=== PATIENT | female | born 1965 | race Caucasian/White ===

== ENCOUNTER 2017-05-27 10:24 | Day surgery (SDC) | payer OTHER ==
[2017-05-25 13:34] VITALS: BMI 27.3
[2017-05-27 15:11] VITALS: TEMP 97.7
[2017-05-27 17:02] VITALS: BP 140/77; PULSE 85
== END 2017-05-27 16:50 | disposition home or self-care (01) ==
LOC: JASU-SURG 10:24
PROVIDERS: ATTEND Orthopaedic Surgery
PROC: 0RBK4ZZ Excision of Left Shoulder Joint, Percutaneous Endoscopic Approach (ICD-10-PCS; principal; 2017-05-27)
DX: M75.42 Impingement syndrome of left shoulder (principal)
CPT/HCPCS: 94760

== ENCOUNTER 2023-12-16 11:29 | Emergency (ER) | payer OTHER ==
[2023-12-16 11:48] VITALS: BP 134/80; PULSE 76; RESP 18; TEMP 98; BMI 29.2
== END 2023-12-16 13:45 | disposition home or self-care (01) ==
LOC: JERFT 11:29
DX: S20.211A Contusion of right front wall of thorax, initial encounter (principal); M25.511 Pain in right shoulder; V49.40XA Driver injured in collision with unspecified motor vehicles in traffic accident, initial encounter; Y92.410 Unspecified street and highway as the place of occurrence of the external cause
CPT/HCPCS: 99282-25

== ENCOUNTER 2024-07-22 09:49 | Inpatient (IN) | payer OTHER ==
[2024-08-04 11:25] VITALS: BMI 31.3
[2024-08-05] MEDS ORDERED: GENTAMICIN SO4 80 MG/2 ML VIAL ONE (07:11)
[2024-08-05] MEDS ORDERED: LIDOCAINE 1%/EPI 1:100000 (20 ML MULTI DOSE VIAL) ONE ×2 (07:11→09:05)
[2024-08-05] MEDS ORDERED: THROMBIN (BOVINE) 20,000 UNIT VIAL TP ONE ×2 (07:12→10:15)
[2024-08-05] MEDS ORDERED: BUPIVACAINE HCL/PF 0.5% (5MG/ML) 10 ML VIAL ONE (07:12)
[2024-08-05] MEDS ORDERED: BUPIVACAINE LIPOSOME/PF (EXPAREL) 266 MG/20 ML VIAL ONE (07:17)
[2024-08-05] MEDS ORDERED: ACETAMINOPHEN INJECTION 100 ML ONE (07:20)
[2024-08-05] MEDS ORDERED: MIDAZOLAM HCL 2 MG/2 ML SINGLE DOSE VIAL ONE ×2 (07:34→12:39)
[2024-08-05] MEDS ORDERED: GLYCOPYRROLATE 0.2 MG/1 ML VIAL ONE (07:35)
[2024-08-05] MEDS ORDERED: VANCOMYCIN 1,000 MG VIAL (RESTRICTED TO ID ONLY) ONE (07:35)
[2024-08-05] MEDS ORDERED: ceFAZolin SODIUM 1 GM VIAL ONE ×2 (07:35→11:14)
[2024-08-05] MEDS ORDERED: DEXAMETHASONE SOD PHOSPHATE 4 MG/1 ML VIAL ONE (07:35)
[2024-08-05] MEDS ORDERED: LIDOCAINE HCL/PF 2% SDV 5ML VIAL ONE ×3 (07:35→11:57)
[2024-08-05] MEDS ORDERED: ONDANSETRON 4 MG/2 ML VIAL ONE (07:35)
[2024-08-05] MEDS ORDERED: SUCCINYLCHOLINE CHLORIDE 200 MG/10 ML SYRINGE ONE (07:36)
[2024-08-05] MEDS ORDERED: PROPOFOL 20 ML ONE ×3 (07:36→13:23)
[2024-08-05] MEDS ORDERED: MAGNESIUM SULF 50% (8.12 MEQ/2 ML-1 GM VIAL) ONE (07:38)
[2024-08-05] MEDS ORDERED: ROCURONIUM BROMIDE 50 MG/5 ML SYRINGE ONE ×3 (07:38→11:53)
[2024-08-05] MEDS ORDERED: KETAMINE HCL 200 MG/20 ML VIAL ONE (08:10)
[2024-08-05] MEDS: ceFAZolin SODIUM 1 GM VIAL IVPB ONE ×2 (08:30→11:30)
[2024-08-05] MEDS ORDERED: HYDROmorphone HCl 2 MG/ML VIAL ONE ×2 (08:31→12:45)
[2024-08-05] MEDS ORDERED: TRANEXAMIC ACID 1000 MG/10 ML VIAL ONE ×2 (08:33→11:14)
[2024-08-05] MEDS: VANCOMYCIN 1,000 MG VIAL (RESTRICTED TO ID ONLY) IVPB ONE (08:35)
[2024-08-05] MEDS ORDERED: PROPOFOL 60 ML ONE (08:38)
[2024-08-05] MEDS ORDERED: BACITRACIN ZINC 15 GM TUBE TOPICAL OINTMENT ONE (08:42)
[2024-08-05] MEDS: LIDOCAINE 1%/EPI 1:100000 (50 ML MULTI DOSE VIAL) INF ONE (08:45)
[2024-08-05] MEDS ORDERED: PROMETHAZINE HCL 25 MG/1 ML VIAL IVPB PRN (08:56)
[2024-08-05] MEDS ORDERED: PHENYLEPHRINE HCL 10 MG/1 ML SINGLE DOSE VIAL ONE (10:09)
[2024-08-05] MEDS ORDERED: ONDANSETRON 4 MG/2 ML VIAL IVPUSH PRN (10:18)
[2024-08-05] MEDS ORDERED: morphine CARPU-JECT 4 MG/1 ML DISP.SYRIN IVPUSH PRN (10:18)
[2024-08-05] MEDS ORDERED: oxyCODONE HCL 5 MG TABLET PO PRN ×2 (10:18)
[2024-08-05] MEDS ORDERED: diphenhydrAMINE HCL 25 MG CAPSULE (FP) PO PRN (10:18)
[2024-08-05] MEDS: THROMBIN (BOVINE) 20,000 UNIT VIAL TP ONE (10:30)
[2024-08-05] MEDS: GENTAMICIN 80MG PREMIX BAG IVPB ONE (11:24)
[2024-08-05] MEDS: HYDROGEN PEROXIDE 473 ML PO ONE (11:24)
[2024-08-05] MEDS: BUPIVACAINE LIPOSOME/PF (EXPAREL) 266 MG/20 ML VIAL NR ONE (11:25)
[2024-08-05] MEDS ORDERED: SUGAMMADEX SODIUM 200 MG/2 ML VIAL ONE (11:53)
[2024-08-05] MEDS: BUPIVACAINE HCL/PF 0.5% (5MG/ML) 10 ML VIAL IJ ONE (11:55)
[2024-08-05] MEDS ORDERED: ALBUTEROL SO4 HFA INHALER IH ONE (12:24)
[2024-08-05] MEDS ORDERED: SODIUM CHLORIDE 0.9% P/F 10 ML VIAL IJ ONE (12:45)
[2024-08-05] MEDS ORDERED: LABETALOL HCL 20 MG/4 ML VIAL ONE (13:29)
[2024-08-05] MEDS ORDERED: SEVOFLURANE 250 ML BTL ONE (13:53)
[2024-08-05] MEDS ORDERED: HYDROmorphone *PCA* 10MG/50ML DISP.SYRIN ONE (14:39)
[2024-08-05] MEDS: HYDROmorphone *PCA* 10MG/50ML DISP.SYRIN PCA SCH (14:48)
[2024-08-05] MEDS: LACTATED RINGERS SOLUTION 1,000 ML/1,000 ML INFUS.BAG IV SCH (16:25)
[2024-08-05] MEDS: DOCUSATE SODIUM 100 MG CAPSULE (FP) PO SCH (17:13)
[2024-08-05 17:23] LABS: ABSOLUTE IMMATURE GRANULOCYTES 0.07 x10^3/uL (0.0-0.031); BASOPHILS # 0.02 x10^3/uL (0.01-0.08); HEMATOCRIT 32.9 % (34.1-44.9); HEMOGLOBIN 10.5 g/dL (11.2-15.7); MCHC 31.9 g/dl (32.2-35.5); MEAN CELL VOLUME 91.1 fl (79.4-94.8); MEAN PLT VOLUME 10.1 fl (9.4-12.3); MONOCYTE # 0.21 x10^3/uL (0.24-0.86); MONOCYTE % 1.6 % (4.7-12.5); PLATELET COUNT 238 x10^3/uL (182-369)
[2024-08-05] MEDS: HEPARIN NA (PORCINE) 5,000 UNITS/ML 1ML VIAL SQ SCH (17:31)
[2024-08-05 17:34] LABS: POTASSIUM 5.1 mmol/L (3.5-5.1)
[2024-08-05] MEDS: ACETAMINOPHEN 325 MG TABLET (FP) PO SCH (17:35)
[2024-08-05 17:36] LABS: ALBUMIN 3.2 g/dl (3.4-5.0); CALCIUM 7.8 mg/dL (8.5-10.1)
[2024-08-05 17:37] LABS: BLOOD UREA NITROGEN 15.2 mg/dL (7-18); MAGNESIUM 1.6 mg/dL (1.8-2.4)
[2024-08-05 17:40] LABS: CREATININE 0.8 mg/dL (0.55-1.3); PHOSPHOROUS 3.7 mg/dL (2.5-4.9)
[2024-08-05 17:41] LABS: BILIRUBIN,TOTAL 0.3 mg/dL (0.2-1); TOT PROT 5.6 g/dl (6.4-8.2)
[2024-08-05] MEDS: INSULIN ASPART SLIDING SCALE (NOVOLOG) 1 VIAL SQ SCH (18:01)
[2024-08-05] MEDS: CEFAZOLIN 1 GM in DEXTROSE 5%-WATER - 50 ML IVPB SCH (18:25)
[2024-08-05] MEDS ORDERED: INSULIN ASPART SLIDING SCALE (NOVOLOG) 1 VIAL SQ ONE (18:30)
[2024-08-05] MEDS ORDERED: INSULIN GLARGINE (LANTUS) 100 UNITS/ML UNITS SQ ONE (18:31)
[2024-08-05] MEDS: ALPRAZolam 0.25 MG TABLET PO SCH (21:48)
[2024-08-05] MEDS: MELATONIN 5 MG TABLETS PO SCH (21:51)
[2024-08-05] MEDS: MULTIVITAMINS (DAILY MVI) TABLET (FP) PO SCH (21:52)
[2024-08-05] MEDS: GABAPENTIN 100 MG CAPSULE PO SCH (21:52)
[2024-08-05] MEDS: FLUoxetine HCL 20 MG CAPSULE PO SCH (21:52)
[2024-08-05] MEDS: LOSARTAN POTASSIUM 50 MG TABLET PO SCH (21:56)
[2024-08-05] MEDS ORDERED: metFORMIN HCL 500 MG TABLET (FP) PO SCH (22:00)
[2024-08-05] MEDS: LACTATED RINGERS SOLUTION 1,000 ML IV SCH (22:46)
[2024-08-06] MEDS ORDERED: CEFAZOLIN 1 GM/D5W 1 GM/50 ML BAG IVPB SCH (02:05)
[2024-08-06] MEDS: CEFAZOLIN 1 GM/D5W 1 GM/50 ML BAG IVPB SCH (02:28)
[2024-08-06] MEDS: FOLIC ACID 1 MG TABLET (FP) PO SCH (09:47)
[2024-08-06] MEDS: FERROUS SO4 325 MG TABLET (FP) PO SCH (09:47)
[2024-08-06 10:11] LABS: HEMATOCRIT 25.8 % (34.1-44.9); HEMOGLOBIN 8.1 g/dL (11.2-15.7); MCHC 31.4 g/dl (32.2-35.5); MEAN CELL VOLUME 92.8 fl (79.4-94.8); MEAN PLT VOLUME 10.4 fl (9.4-12.3); PLATELET COUNT 201 x10^3/uL (182-369); RDW 12.5 % (12.3-16.6)
[2024-08-06 12:20] LABS: POTASSIUM 4.2 mmol/L (3.5-5.1)
[2024-08-06 12:32] LABS: CREATININE 0.6 mg/dL (0.55-1.3)
[2024-08-06] MEDS ORDERED: BENZOCAINE/MENTH/CETYLPYRD CL 1 EACH LOZENGE MM PRN (16:03)
[2024-08-06] MEDS: IBUPROFEN 400 MG TABLET (FP) PO PRN (18:43)
[2024-08-07 08:23] LABS: ABSOLUTE IMMATURE GRANULOCYTES 0.02 x10^3/uL (0.0-0.031); BASOPHILS # 0.03 x10^3/uL (0.01-0.08); EOSINOPHIL % 0.7 % (0.7-5.8); EOSINOPHILS # 0.05 x10^3/uL (0.04-0.36); HEMATOCRIT 23.1 % (34.1-44.9); MCHC 30.3 g/dl (32.2-35.5); MEAN CELL VOLUME 93.9 fl (79.4-94.8); MEAN PLT VOLUME 10.3 fl (9.4-12.3); MONOCYTE # 0.91 x10^3/uL (0.24-0.86); MONOCYTE % 12.6 % (4.7-12.5); PLATELET COUNT 159 x10^3/uL (182-369); RDW 12.3 % (12.3-16.6)
[2024-08-07 08:42] LABS: POTASSIUM 3.8 mmol/L (3.5-5.1)
[2024-08-07 08:50] LABS: ALBUMIN 2.6 g/dl (3.4-5.0); BLOOD UREA NITROGEN 7.3 mg/dL (7-18); CALCIUM 8.2 mg/dL (8.5-10.1); MAGNESIUM 1.9 mg/dL (1.8-2.4)
[2024-08-07 08:53] LABS: CREATININE 0.5 mg/dL (0.55-1.3)
[2024-08-07 08:55] LABS: BILIRUBIN,TOTAL 0.2 mg/dL (0.2-1); TOT PROT 4.6 g/dl (6.4-8.2)
[2024-08-07] MEDS: LACTATED RINGERS SOLUTION 1,000 ML/1,000 ML INFUS.BAG IV SCH (11:18)
[2024-08-07] MEDS ORDERED: INSULIN ASPART SLIDING SCALE (NOVOLOG) 1 VIAL SQ ONE (12:06)
[2024-08-07 13:39] VITALS: RESP 20
[2024-08-07] MEDS: IRON SUCROSE INJECTION 200 MG in SODIUM CHLORIDE 100 ML IVPB ONE (17:51)
[2024-08-08 08:00] LABS: ABSOLUTE IMMATURE GRANULOCYTES 0.05 x10^3/uL (0.0-0.031); BASOPHILS # 0.04 x10^3/uL (0.01-0.08); EOSINOPHIL % 0.7 % (0.7-5.8); EOSINOPHILS # 0.06 x10^3/uL (0.04-0.36); HEMATOCRIT 23.1 % (34.1-44.9); HEMOGLOBIN 7.3 g/dL (11.2-15.7); MCHC 31.6 g/dl (32.2-35.5); MEAN PLT VOLUME 10.2 fl (9.4-12.3); MONOCYTE # 0.89 x10^3/uL (0.24-0.86); MONOCYTE % 10.7 % (4.7-12.5); PLATELET COUNT 169 x10^3/uL (182-369); RDW 12.1 % (12.3-16.6)
[2024-08-08 08:17] LABS: POTASSIUM 3.5 mmol/L (3.5-5.1)
[2024-08-08 08:22] LABS: ALBUMIN 2.7 g/dl (3.4-5.0); BLOOD UREA NITROGEN 4.8 mg/dL (7-18); CALCIUM 8.1 mg/dL (8.5-10.1); MAGNESIUM 1.8 mg/dL (1.8-2.4)
[2024-08-08 08:26] LABS: BILIRUBIN,TOTAL 0.3 mg/dL (0.2-1); CREATININE 0.4 mg/dL (0.55-1.3); TOT PROT 5.2 g/dl (6.4-8.2)
[2024-08-08] MEDS: POTASSIUM CHLORIDE ORAL LIQUID 20 MEQ/15 ML PO ONE (09:30)
[2024-08-08] MEDS: MAGNESIUM 1GM/D5W - 1 GM/100 ML IVPB IVPB ONE (10:35)
[2024-08-08] MEDS ORDERED: oxyCODONE HCL 5 MG TABLET PO PRN (11:18)
[2024-08-08 12:59] VITALS: BP 126/70; PULSE 94
[2024-08-08 13:14] VITALS: TEMP 98.9
[2024-08-08] MEDS: oxyCODONE HCL 5 MG TABLET PO PRN (13:21)
[2024-08-08] MEDS ORDERED: DOCUSATE SODIUM 100 MG CAPSULE (FP) PO SCH (22:00)
== END 2024-08-08 13:54 | disposition home or self-care (01) | DRG 472 ==
LOC: J2C 08-05 06:08 → J8W 08-05 16:59
PROVIDERS: ADMIT Internal Medicine; ATTEND Nurse Practitioner Acute Care
PROC: 01N10ZZ Release Cervical Nerve, Open Approach (ICD-10-PCS; 2024-08-05)
PROC: 4A1004G Monitoring of Central Nervous Electrical Activity, Intraoperative, Open Approach (ICD-10-PCS; 2024-08-05)
PROC: 0RG20A0 Fusion of 2 or more Cervical Vertebral Joints with Interbody Fusion Device, Anterior Approach, Anterior Column, Open Approach (ICD-10-PCS; principal; 2024-08-05 08:00)
PROC: 0PB30ZZ Excision of Cervical Vertebra, Open Approach (ICD-10-PCS; 2024-08-05 08:00)
DX: M47.12 Other spondylosis with myelopathy, cervical region (principal); M50.023 Cervical disc disorder at C6-C7 level with myelopathy; M40.292 Other kyphosis, cervical region; F41.8 Other specified anxiety disorders; M45.2 Ankylosing spondylitis of cervical region; E11.9 Type 2 diabetes mellitus without complications; E66.9 Obesity, unspecified; Z68.31 Body mass index [BMI] 31.0-31.9, adult; I10 Essential (primary) hypertension; D50.9 Iron deficiency anemia, unspecified
CPT/HCPCS: 36415; 72125-TC; 80048; 80053; 82728; 82962; 83540; 83550; 83735; 84100; 85025; 85027; 86850; 86900; 86901; 94760; 97116-GP; 97162-GP; C1713; C1889; J0666; J1756

== ENCOUNTER 2024-08-10 11:27 | Inpatient (IN) | payer OTHER ==
[2024-08-10] MEDS: morphine CARPU-JECT 4 MG/1 ML DISP.SYRIN IVPUSH ONE (12:30)
[2024-08-10 13:26] LABS: ABSOLUTE IMMATURE GRANULOCYTES 0.07 x10^3/uL (0.0-0.031); BASOPHILS # 0.04 x10^3/uL (0.01-0.08); EOSINOPHIL % 2.1 % (0.7-5.8); EOSINOPHILS # 0.19 x10^3/uL (0.04-0.36); MCHC 31.7 g/dl (32.2-35.5); MEAN CELL VOLUME 91.6 fl (79.4-94.8); MEAN PLT VOLUME 9.3 fl (9.4-12.3); MONOCYTE # 1.11 x10^3/uL (0.24-0.86); MONOCYTE % 12.1 % (4.7-12.5); RDW 12.9 % (12.3-16.6)
[2024-08-10 13:33] LABS: INR 1.0 (0.83-1.09); PROTHROMBIN TIME (PATIENT) 10.9 SEC (9.7-13.0)
[2024-08-10 13:36] LABS: ACTIVATED PTT 30.9 SECONDS (25.2-36.5)
[2024-08-10 13:48] LABS: CO2 32.0 mmol/L (21-32); GLUCOSE,RANDOM 144.0 mg/dL (74-106)
[2024-08-10 13:51] LABS: CREATININE 0.4 mg/dL (0.55-1.3); SGOT/AST 25.0 U/L (15-37); SGPT/ALT 28.0 U/L (13-61)
[2024-08-10 13:53] LABS: TOT PROT 5.9 g/dl (6.4-8.2)
[2024-08-10 13:54] LABS: ALK PHOS 54.0 U/L (45-117)
[2024-08-10] MEDS ORDERED: ACETAMINOPHEN INJECTION 100 ML ONE (14:22)
[2024-08-10] MEDS ORDERED: KETOROLAC TROMETHAMINE 15 MG/ML VIAL ONE (14:23)
[2024-08-10] MEDS: KETOROLAC TROMETHAMINE 15 MG/ML VIAL IVPUSH ONE (14:29)
[2024-08-10] MEDS: ACETAMINOPHEN 1000 MG/100 ML BAG IVPB ONE (14:29)
[2024-08-10] MEDS ORDERED: HYDROmorphone HCL CARPU-JECT 2 MG/1 ML DISP.SYRIN ONE (14:51)
[2024-08-10] MEDS ORDERED: morphine CARPU-JECT 4 MG/1 ML DISP.SYRIN IVPUSH PRN (16:37)
[2024-08-10] MEDS ORDERED: KETOROLAC TROMETHAMINE 30 MG/1 ML VIAL IVPUSH PRN (16:37)
[2024-08-10] MEDS: INSULIN ASPART SLIDING SCALE (NOVOLOG) 1 VIAL SQ SCH (16:42)
[2024-08-10] MEDS ORDERED: ACETAMINOPHEN 1000 MG/100 ML BAG IVPB PRN (17:42)
[2024-08-10 18:14] VITALS: BMI 29.9
[2024-08-10] MEDS: DEXAMETHASONE SOD PHOSPHATE 4 MG/1 ML VIAL IVPUSH SCH (18:22)
[2024-08-10] MEDS ORDERED: ACETAMINOPHEN 1000 MG/100 ML BAG IVPB SCH (21:00)
[2024-08-10] MEDS ORDERED: GABAPENTIN 100 MG CAPSULE PO SCH (22:00)
[2024-08-10] MEDS: DOCUSATE SODIUM 100 MG CAPSULE (FP) PO SCH (22:05)
[2024-08-10] MEDS: GABAPENTIN 300 MG CAPSULE PO SCH (22:06)
[2024-08-10] MEDS: DEXAMETHASONE SOD PHOSPHATE 10 MG/1 ML VIAL IVPUSH SCH (23:51)
[2024-08-11] MEDS: ACETAMINOPHEN 1000 MG/100 ML BAG IVPB SCH (01:23)
[2024-08-11 07:53] LABS: MCHC 32.5 g/dl (32.2-35.5); MEAN CELL VOLUME 89.8 fl (79.4-94.8); MEAN PLT VOLUME 9.6 fl (9.4-12.3); RDW 13.1 % (12.3-16.6)
[2024-08-11] MEDS ORDERED: GENTAMICIN SO4 80 MG/2 ML VIAL ONE (08:09)
[2024-08-11] MEDS ORDERED: THROMBIN (BOVINE) 20,000 UNIT VIAL TP ONE (08:09)
[2024-08-11] MEDS ORDERED: LIDOCAINE 1%/EPI 1:100000 (20 ML MULTI DOSE VIAL) ONE (08:10)
[2024-08-11] MEDS ORDERED: BUPIVACAINE HCL/PF 0.5% (5MG/ML) 10 ML VIAL ONE (08:10)
[2024-08-11 08:20] LABS: CO2 26.0 mmol/L (21-32); CREATININE 0.4 mg/dL (0.55-1.3); GLUCOSE,RANDOM 215.0 mg/dL (74-106); SGPT/ALT 31.0 U/L (13-61)
[2024-08-11 08:22] LABS: TOT PROT 6.4 g/dl (6.4-8.2)
[2024-08-11 08:23] LABS: ALK PHOS 59.0 U/L (45-117)
[2024-08-11 08:25] LABS: SGOT/AST 23.0 U/L (15-37)
[2024-08-11] MEDS: PANTOPRAZOLE SODIUM 40 MG VIAL IVPUSH SCH (09:46)
[2024-08-11] MEDS: ENOXAPARIN NA (PORCINE) 40 MG/0.4 ML DISP.SYRIN SQ SCH (09:46)
[2024-08-11] MEDS: LOSARTAN POTASSIUM 50 MG TABLET PO SCH (09:46)
[2024-08-11] MEDS ORDERED: BACITRACIN ZINC 15 GM TUBE TOPICAL OINTMENT ONE (09:53)
[2024-08-11] MEDS ORDERED: MIDAZOLAM HCL 2 MG/2 ML SINGLE DOSE VIAL ONE (10:10)
[2024-08-11] MEDS ORDERED: PROPOFOL 40 ML ONE (10:10)
[2024-08-11] MEDS ORDERED: POLYETHYLENE GLYCOL (HEALTHYLAX) 3350 17 GM PACKET PO SCH (10:15)
[2024-08-11] MEDS ORDERED: ROCURONIUM BROMIDE 50 MG/5 ML SYRINGE ONE ×2 (10:21→11:25)
[2024-08-11] MEDS ORDERED: PROPOFOL 20 ML ONE ×3 (11:01→12:35)
[2024-08-11] MEDS: BUPIVACAINE HCL/PF 0.5% (5MG/ML) 10 ML VIAL IJ ONE (11:38)
[2024-08-11] MEDS: BUPIVACAINE LIPOSOME/PF (EXPAREL) 266 MG/20 ML VIAL NR ONE (11:46)
[2024-08-11] MEDS: POLYETHYLENE GLYCOL (HEALTHYLAX) 3350 17 GM PACKET PO SCH (11:54)
[2024-08-11] MEDS ORDERED: SUGAMMADEX SODIUM 200 MG/2 ML VIAL ONE (12:29)
[2024-08-11] MEDS ORDERED: diphenhydrAMINE HCL 25 MG CAPSULE (FP) PO PRN (12:51)
[2024-08-11] MEDS ORDERED: ONDANSETRON 4 MG/2 ML VIAL IVPUSH PRN (12:51)
[2024-08-11] MEDS ORDERED: LACTATED RINGERS SOLUTION 1,000 ML IV SCH (13:00)
[2024-08-11] MEDS: PNEUMOC 20-VAL CONJ-DIP CRM/PF 0.5 ML SYRINGE IM ONE (17:44)
[2024-08-11] MEDS: HEPARIN NA (PORCINE) 5,000 UNITS/ML 1ML VIAL SQ SCH ×2 (17:49→20:26)
[2024-08-11] MEDS: CEFAZOLIN 1 GM/D5W 1 GM/50 ML BAG IVPB SCH (17:49)
[2024-08-11] MEDS: HYDROmorphone *PCA* 10MG/50ML DISP.SYRIN PCA SCH (18:22)
[2024-08-11] MEDS: LACTATED RINGERS SOLUTION 1,000 ML/1,000 ML INFUS.BAG IV SCH (18:31)
[2024-08-11] MEDS: SENNOSIDES 8.8 MG/5 ML SYRUP PO SCH (21:59)
[2024-08-11] MEDS: LIDOCAINE VISCOUS 2% ORAL/TOP 15 ML UNIT-DOSE CUP MM ONE (22:00)
[2024-08-11] MEDS: MELATONIN 5 MG TABLETS PO PRN (22:10)
[2024-08-12 08:51] LABS: MCHC 31.5 g/dl (32.2-35.5); MEAN CELL VOLUME 91.6 fl (79.4-94.8); MEAN PLT VOLUME 9.6 fl (9.4-12.3); RDW 13.1 % (12.3-16.6)
[2024-08-12] MEDS: HYDROmorphone *PCA* 10MG/50ML DISP.SYRIN PCA SCH (09:30)
[2024-08-12] MEDS: HEPARIN NA (PORCINE) 5,000 UNITS/ML 1ML VIAL SQ SCH (10:04)
[2024-08-12] MEDS: FOLIC ACID 1 MG TABLET (FP) PO SCH (10:07)
[2024-08-12] MEDS: FERROUS SO4 325 MG TABLET (FP) PO SCH (10:07)
[2024-08-12 11:10] LABS: CO2 31.0 mmol/L (21-32); GLUCOSE,RANDOM 181.0 mg/dL (74-106)
[2024-08-12 11:12] LABS: CREATININE 0.5 mg/dL (0.55-1.3)
[2024-08-12 11:34] LABS: IRON SERUM 34.0 ug/dL (50-175)
[2024-08-12] MEDS: LACTOBACILLUS ACIDOPHILUS 1 TABLET PO SCH (12:38)
[2024-08-12] MEDS: SIMETHICONE 80 MG TAB.CHEW (FP) PO PRN (12:38)
[2024-08-12] MEDS: INSULIN ASPART SLIDING SCALE (NOVOLOG) 1 VIAL SQ SCH (16:45)
[2024-08-12] MEDS: INSULIN GLARGINE (LANTUS) 100 UNITS/ML UNITS SQ SCH (22:20)
[2024-08-13 08:31] LABS: MCHC 31.3 g/dl (32.2-35.5); MEAN CELL VOLUME 92.0 fl (79.4-94.8); MEAN PLT VOLUME 9.6 fl (9.4-12.3); RDW 13.2 % (12.3-16.6)
[2024-08-13 09:11] LABS: CO2 31.0 mmol/L (21-32); GLUCOSE,RANDOM 212.0 mg/dL (74-106)
[2024-08-13 09:15] LABS: CREATININE 0.5 mg/dL (0.55-1.3); SGOT/AST 17.0 U/L (15-37); SGPT/ALT 26.0 U/L (13-61)
[2024-08-13 09:17] LABS: TOT PROT 5.6 g/dl (6.4-8.2)
[2024-08-13 09:18] LABS: ALK PHOS 54.0 U/L (45-117)
[2024-08-13] MEDS: MULTIVITAMINS (DAILY MVI) TABLET (FP) PO SCH (09:47)
[2024-08-13] MEDS ORDERED: BENZOCAINE 28 GM HEMORRHOIDAL OINTMENT RC PRN (13:36)
[2024-08-13] MEDS: BISACODYL 10 MG SUPP.RECT PR ONE (14:34)
[2024-08-13] MEDS: HYDROmorphone *PCA* 10MG/50ML DISP.SYRIN PCA SCH (21:30)
[2024-08-13] MEDS: IRON SUCROSE INJECTION 200 MG in SODIUM CHLORIDE 100 ML IVPB ONE (23:00)
[2024-08-14 01:06] VITALS: RESP 18
[2024-08-14] MEDS: LACTATED RINGERS SOLUTION 1,000 ML/1,000 ML INFUS.BAG IV SCH (07:51)
[2024-08-14] MEDS: INSULIN GLARGINE (LANTUS) 100 UNITS/ML UNITS SQ SCH (07:52)
[2024-08-14 09:28] LABS: MCHC 30.4 g/dl (32.2-35.5); MEAN CELL VOLUME 94.6 fl (79.4-94.8); MEAN PLT VOLUME 9.6 fl (9.4-12.3); RDW 13.4 % (12.3-16.6)
[2024-08-14 09:50] LABS: CO2 31.0 mmol/L (21-32); GLUCOSE,RANDOM 209.0 mg/dL (74-106)
[2024-08-14 09:53] LABS: CREATININE 0.6 mg/dL (0.55-1.3); SGOT/AST 22.0 U/L (15-37); SGPT/ALT 31.0 U/L (13-61)
[2024-08-14 09:55] LABS: TOT PROT 5.8 g/dl (6.4-8.2)
[2024-08-14 09:56] LABS: ALK PHOS 58.0 U/L (45-117)
[2024-08-14 10:10] LABS: MONOCYTE # 0.95 x10^3/uL (0.24-0.86)
[2024-08-14] MEDS: ACETAMINOPHEN 325 MG TABLET (FP) PO SCH (11:07)
[2024-08-14] MEDS: oxyCODONE HCL 10 MG SUSTAINED ACTING TABLET PO SCH (11:07)
[2024-08-14] MEDS: DEXAMETHASONE 4 MG TABLET (FP) PO SCH (11:08)
[2024-08-14] MEDS ORDERED: INSULIN ASPART SLIDING SCALE (NOVOLOG) 1 VIAL SQ ONE (11:53)
[2024-08-14] MEDS: INSULIN ASPART SLIDING SCALE (NOVOLOG) 1 VIAL SQ SCH (12:07)
[2024-08-15 08:35] LABS: MCHC 30.8 g/dl (32.2-35.5); MEAN CELL VOLUME 94.1 fl (79.4-94.8); MEAN PLT VOLUME 9.4 fl (9.4-12.3); RDW 14.1 % (12.3-16.6)
[2024-08-15 09:50] LABS: CREATININE 0.5 mg/dL (0.55-1.3); GLUCOSE,RANDOM 206.0 mg/dL (74-106)
[2024-08-15 09:51] LABS: CO2 29.0 mmol/L (21-32)
[2024-08-15 09:52] LABS: TOT PROT 5.4 g/dl (6.4-8.2)
[2024-08-15 09:53] LABS: ALK PHOS 50.0 U/L (45-117)
[2024-08-15 09:54] LABS: SGOT/AST 20.0 U/L (15-37); SGPT/ALT 31.0 U/L (13-61)
[2024-08-15] MEDS: oxyCODONE HCL 20 MG SUSTAINED ACTING TABLET PO SCH (12:02)
[2024-08-15] MEDS: LIDOCAINE 5% TOPICAL PATCH TP SCH (12:02)
[2024-08-15] MEDS: LIDOCAINE PATCH REMOVAL MC SCH (22:13)
[2024-08-15] MEDS: BISACODYL 10 MG SUPP.RECT PR ONE (23:20)
[2024-08-16] MEDS: CEFAZOLIN 1 GM in DEXTROSE 5%-WATER - 50 ML IVPB SCH (02:04)
[2024-08-16 09:09] LABS: MCHC 30.9 g/dl (32.2-35.5); MEAN CELL VOLUME 93.7 fl (79.4-94.8); MEAN PLT VOLUME 9.3 fl (9.4-12.3); RDW 14.8 % (12.3-16.6)
[2024-08-16] MEDS: DEXAMETHASONE 4 MG TABLET (FP) PO SCH (09:27)
[2024-08-16] MEDS: PANTOPRAZOLE 40 MG TABLET PO SCH (09:28)
[2024-08-16 09:37] LABS: CO2 29 mmol/L (21-32); GLUCOSE,RANDOM 165 mg/dL (74-106)
[2024-08-16 09:39] LABS: CREATININE 0.6 mg/dL (0.55-1.3)
[2024-08-16 09:40] LABS: SGOT/AST 20 U/L (15-37); SGPT/ALT 30 U/L (13-61)
[2024-08-16 09:41] LABS: TOT PROT 5.5 g/dl (6.4-8.2)
[2024-08-16 09:42] LABS: ALK PHOS 52 U/L (45-117)
[2024-08-16] MEDS: ACETAMINOPHEN 500 MG TABLET (FP) PO SCH (11:33)
[2024-08-16] MEDS: GABAPENTIN 400 MG CAPSULE PO SCH (14:27)
[2024-08-17 08:49] LABS: MCHC 30.9 g/dl (32.2-35.5); MEAN CELL VOLUME 94.6 fl (79.4-94.8); MEAN PLT VOLUME 9.4 fl (9.4-12.3); RDW 15.4 % (12.3-16.6)
[2024-08-17 09:18] LABS: CO2 31.0 mmol/L (21-32); GLUCOSE,RANDOM 98.0 mg/dL (74-106)
[2024-08-17 09:20] LABS: SGOT/AST 20.0 U/L (15-37); SGPT/ALT 32.0 U/L (13-61)
[2024-08-17 09:21] LABS: CREATININE 0.5 mg/dL (0.55-1.3)
[2024-08-17 09:22] LABS: TOT PROT 5.2 g/dl (6.4-8.2)
[2024-08-17 09:23] LABS: ALK PHOS 46.0 U/L (45-117)
[2024-08-17] MEDS ORDERED: DEXAMETHASONE 0.5 MG TABLET PO SCH (10:00)
[2024-08-17] MEDS: DEXAMETHASONE 8 MG, DEXAMETHASONE 2 MG PO ONE (10:29)
[2024-08-17 11:55] VITALS: BP 112/85; PULSE 78; TEMP 98
== END 2024-08-17 11:58 | DRG 473 ==
LOC: JER 11:27 → JERBED 14:49 → J6S 17:16 → OBSVTOIN 08-11 09:03 → J8W 08-11 15:19
PROVIDERS: ADMIT Internal Medicine; ATTEND Nurse Practitioner Acute Care
PROC: 0RG4071 Fusion of Cervicothoracic Vertebral Joint with Autologous Tissue Substitute, Posterior Approach, Posterior Column, Open Approach (ICD-10-PCS; 2024-08-11)
PROC: 01N10ZZ Release Cervical Nerve, Open Approach (ICD-10-PCS; 2024-08-11)
PROC: 0JC70ZZ Extirpation of Matter from Back Subcutaneous Tissue and Fascia, Open Approach (ICD-10-PCS; 2024-08-11)
PROC: 0JQ70ZZ Repair Back Subcutaneous Tissue and Fascia, Open Approach (ICD-10-PCS; 2024-08-11)
PROC: 4A11X4G Monitoring of Peripheral Nervous Electrical Activity, Intraoperative, External Approach (ICD-10-PCS; 2024-08-11)
PROC: 0RG2071 Fusion of 2 or more Cervical Vertebral Joints with Autologous Tissue Substitute, Posterior Approach, Posterior Column, Open Approach (ICD-10-PCS; principal; 2024-08-11 10:30)
DX: M47.12 Other spondylosis with myelopathy, cervical region (principal); T81.89XA Other complications of procedures, not elsewhere classified, initial encounter; S11.89XA Other open wound of other specified part of neck, initial encounter; M45.2 Ankylosing spondylitis of cervical region; M50.20 Other cervical disc displacement, unspecified cervical region; G89.18 Other acute postprocedural pain; M51.26 Other intervertebral disc displacement, lumbar region; E11.9 Type 2 diabetes mellitus without complications; M40.292 Other kyphosis, cervical region; F41.8 Other specified anxiety disorders; D50.9 Iron deficiency anemia, unspecified; Y82.8 Other medical devices associated with adverse incidents; Y92.89 Other specified places as the place of occurrence of the external cause
CPT/HCPCS: 36415; 72125-TC; 72141-TC; 80048; 80053; 82962; 83036; 83540; 83550; 83735; 84100; 85025; 85027; 85610; 85730; 86850; 86900; 86901; 87635; 88300-TC; 94010; 94760; 97116-GP; 97161-GP; 99285-25; G0378; J0666; J1100; J1756